=== PATIENT | female | born 1960 | race Caucasian/White ===

== ENCOUNTER → 2017-03-05 | Outpatient (CLI) | payer BC ==
[~2017-03-05] MED LIST: ATV/2; BUPRTAB51 PO; DICL-201 PO; ESCI1TAB10 PO; IBUP-103 PO; LEVO150T9 PO; LEVO50TA6 PO; LISI-729 PO; MULT-506 PO; OMEG10007 PO; [UNRECOGNIZED DRUG - OTHER] PO
--- NOTE | 2017-03-06 14:23 | MAMMOGRAPHY REPORT ---
BILATERAL DIGITAL SCREENING MAMMOGRAM TOMOSYNTHESIS WITH CAD: 03/05/2017 CLINICAL HISTORY: Routine screening. Patient has no complaints. TECHNIQUE: Breast tomosynthesis in addition to standard 2D mammography was performed. Current study was also evaluated with a Computer Aided Detection (CAD) system. COMPARISON: Comparison is made to exams dated: 05/25/2015 mammogram, 05/22/2014 mammogram, 04/15/2013 m ammogram, 04/12/2012 mammogram, 04/04/2011 mammogram, and 04/02/2010 mammogram - [facility]. BREAST COMPOSITION: The tissue of both breasts is extremely dense, which lowers the sensitivity of m ammography. FINDINGS: No suspicious masses, calcifications, or areas of architectural distortion are noted in ei ther breast. There has been no significant interval change compared to prior exams. IMPRESSION: ACR BI-RADS CATEGORY 1: NEGATIVE There is no mammographic evidence of malignancy. A 1 year screening mammogram is recommended. The pa tient will receive written notification of the results. Approximately 10% of breast cancers are not detected with mammography. A negative mammographic report should not delay biopsy if a clinically suggestive mass is present. Lilia Dos Santos M.D. /:03/05/2017 16:30:44 Group Contract Analyst: Stella Nicole RT(R)(M), [facility] letter sent: Normal 1/2 BI-RADS Code: ACR BI-RADS Category 1: Negative
== END | disposition home or self-care (01) ==
LOC: C.MAMM 09:46
PROVIDERS: ATTEND Family Medicine
DX: Z12.31 Encounter for screening mammogram for malignant neoplasm of breast (principal)

== ENCOUNTER 2017-09-18 05:32 | Inpatient (IN) | payer BC ==
[2017-08-13 13:02] VITALS: BMI 26.0
--- NOTE | 2017-08-13 13:32 | PAT Medication Instructions ---
Service Date Aug 13, 2017. Current Home Medication List Bupropion (Wellbutrin-Xl), 300 MG PO QAM Diclofenac (Voltaren), 75 MG PO PRN Escitalopram Oxalate (Lexapro), 20 MG PO QAM Fish Oil ([place]-3), 2 CAP PO QAM Ibuprofen Tab (Advil), 600 MG PO PRN Levothyroxine Sodium (Levothyroxine Sodium), 1 TAB PO QAM Lisinopril (Zestril), 5 MG PO QAM Multivitamin (Multivitamin), 1 TAB PO QAM [Elysium], 2 TAB PO QAM Medication Instructions For Your Scheduled Surgery - Check with surgeon for instructions: Diclofenac (Voltaren), 75 MG PO PRN Ibuprofen Tab (Advil), 600 MG PO PRN - Hold the following medications 2 weeks prior to surgery: Fish Oil ([place]-3), 2 CAP PO QAM [Elysium], 2 TAB PO QAM - Hold the following medications the morning of surgery: Multivitamin (Multivitamin), 1 TAB PO QAM Lisinopril (Zestril), 5 MG PO QAM - Take the following medications the morning of surgery with a sip of water: Levothyroxine Sodium (Levothyroxine Sodium), 1 TAB PO QAM Escitalopram Oxalate (Lexapro), 20 MG PO QAM Bupropion (Wellbutrin-Xl), 300 MG PO QAM If you have any questions please call us at [phone] or [phone] or [phone]
--- NOTE | 2017-08-13 14:25 | DIAGNOSTIC IMAGING REPORT ---
TWO VIEW CHEST CLINICAL HISTORY: Preoperative examination. FINDINGS: PA and lateral chest radiographs are obtained. No prior studies are available for comparison at the time of dictation. The cardiomediastinal silhouette is unremarkable. The lungs and pleural spaces are clear. There is no pneumothorax. The skeletal structures are osteopenic. There is S-shaped thoracolumbar scoliosis. Cholecystectomy clips are noted. IMPRESSION: No active disease in the chest. Electronically signed by: Rufino Kern M.D. 08/13/2017 2:24 PM Dictated Date/Time: 08/13/2017 2:23 PM
[2017-08-13 14:29] LABS: BASO % 0.4 %; BASO ABS # 0.02 K/uL (0-0.2); COMPLETE YES; EOS % 3.4 %; HEMATOCRIT 37.2 % (37-47); IG% 0.2 %; LYMPH % 36.7 %; LYMPH ABS # 1.83 K/uL (1.2-3.4); MEAN CELL VOLUME 90.1 fL (80-100); MEAN CORPUSCULAR HEMOGLOBIN 31.5 pg (25-34); MEAN CORPUSCULAR HGB CONC 34.9 g/dl (32-36); MEAN PLATELET VOLUME 9.7 fL (7.4-10.4); MONO % 8.4 %; NEUT % 50.9 %; PLATELET COUNT 217 K/uL (130-400); RED BLOOD COUNT 4.13 M/uL (4.2-5.4); WHITE BLOOD COUNT 4.99 K/uL (4.8-10.8)
[2017-08-13 14:43] LABS: PARTIAL THROMBOPLASTIN RATIO 1.1; PROTHROMBIN TIME (PATIENT) 10.3 SECONDS (9.0-12.0); URINE APPEARANCE CLEAR (CLEAR); URINE BILIRUBIN NEG (NEG); URINE COLOR YELLOW; URINE NITRITE NEG (NEG); URINE SPECIFIC GRAVITY 1.012 (1.000-1.030); UROBILINOGEN NEG (NEG)
[2017-08-13 14:53] LABS: MANUAL MICROSCOPIC REQUIRED? NO; REVIEW REQ? NO
[2017-08-13 15:07] LABS: BUN/CREATININE RATIO 21.7 (10-20); CALCIUM 9.2 mg/dl (8.5-10.1); CREATININE 0.83 mg/dl (0.60-1.20); POTASSIUM 3.8 mmol/L (3.5-5.1)
--- NOTE | 2017-09-16 17:32 | HISTORY & PHYSICAL EXAMINATION ---
DATE OF ADMISSION: 09/18/2017 NOTICE TO RECEIVING [facility]/AGENCY This information is strictly Confidential and protected under [place] law. [place] law prohibits you from making any further disclosure of this information unless further disclosure is expressly permitted by the written consent of the person to whom it pertains or is authorized by law. A general authorization for the release of medical or other information is not sufficient for this purpose. Hospital accepts no responsibility if the information is made available to any other person, INCLUDING THE PATIENT. CHIEF COMPLAINT: Primary osteoarthritis of the left hip. HISTORY OF PRESENT ILLNESS: Meenakshi is a very pleasant 57-year-old female who has been dealing with chronic bilateral hip pain with the left worse than the right. She underwent a hip arthroscopy by Dr. Powell a couple of years ago. During that procedure he did find a lot of arthritis in her hip. Unfortunately, her symptoms have worsened. It has gotten to the point where she is limping around all the time. She is having a hard time doing things that she enjoys. It hurts when she walks long distances. 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 After failing conservative treatment, she elected to proceed with a left total hip arthroplasty. PAST MEDICAL HISTORY: Depression and hypertension. PAST SURGICAL HISTORY: Significant for a left hip labral repair by Dr. Powell, tonsillectomy, appendectomy, cholecystectomy and tubal ligation. ALLERGIES: None. MEDICATIONS: Lisinopril 5 mg daily, Synthroid 150 mcg daily, Wellbutrin 300 mg daily, Lexapro 20 mg daily, Voltaren 75 mg as needed for pain, Mobic 15 mg as needed for pain, fish oil and multivitamins. FAMILY HISTORY: Significant for thyroid, liver and colon cancer. SOCIAL HISTORY: She is , has 1-2 drinks per day, has 2 kids and does little activity, mostly because of her hip pain. REVIEW OF SYSTEMS: She complains mostly of hip pain. All other pertinent review of systems are negative. PHYSICAL EXAMINATION: GENERAL: She is awake, alert and oriented x3. She is in no apparent distress. She is very pleasant. HEENT: Pupils are equal, round and reactive to light. Extraocular motion intact. Oral mucosa is pink and moist. HEART: Regular rate per radial pulse. LUNGS: [place] symmetrically bilaterally with no audible breath sounds. ABDOMEN: Soft, nontender, nondistended. MUSCULOSKELETAL: On physical examination of her left leg she walks with an antalgic gait. She has difficult lying down, mostly because of her hip pain. I am able to flex it to about 90 degrees and she has about 30 degrees of external rotation and 10 degrees of internal rotation with significant pain in end ranges of motion. All of her pain is located in her groin. Her leg lengths are equal. IMAGING DATA: X-rays of the left hip show advanced osteoarthritis with joint space narrowing and osteophyte formation. IMPRESSION: Primary osteoarthritis of the left hip. PLAN: Will proceed with an anterior left total hip arthroplasty. Postoperatively, she will be started on aspirin for DVT prophylaxis and kept in the hospital for 2 midnights for postoperative medical management.
[2017-09-18] VITALS (9 sets, daily range): BP systolic 102–128; BP diastolic 56–83; PULSE 66–82; TEMP 36.3–36.9; O2SAT 97–100; Ht 170.2 cm; Wt 76.1 kg
[~2017-09-18] VITALS: Ht 170.2 cm; Wt 76.1 kg
[~2017-09-18 05:32] MED LIST changes: -ATV/2; -LEVO50TA6 PO
[2017-09-18] MEDS ORDERED: LACTATED RINGER'S 1000ML 1,000 ML IV SCH (06:00)
[2017-09-18] MEDS ORDERED: LACTATED RINGER'S 1000ML IV SCH (06:00)
[2017-09-18] MEDS ORDERED: ACETAMINOPHEN 500 MG TAB PO SCH (06:00)
[2017-09-18] MEDS ORDERED: ROPIVACAINE 5MG/ML 30 ML 150 MG, BUPIVACAINE 0.5% MPF INJ 30 ML, EpINEphrine HCL INJ 0.... INFIL SCH ×8 (06:00)
[2017-09-18] MEDS ORDERED: CEFAZOLIN 2000MG IV PUSH 10 ML IV SCH (06:00)
[2017-09-18] MEDS ORDERED: GABAPENTIN 300 MG CAP PO SCH (06:00)
[2017-09-18] MEDS ORDERED: FAMOTIDINE 20 MG TAB PO SCH (06:00)
[2017-09-18] MEDS ORDERED: LACTATED RINGER'S 1000ML 500 ML IV ONE (06:00)
[2017-09-18] MEDS ORDERED: BUPIVACAINE 0.5 % 5 MG/1 ML PF 10ML VIAL ONE (06:27)
[2017-09-18] MEDS ORDERED: MIDAZOLAM HCL 1 MG/ML 2ML VIAL ONE ×3 (06:39→08:31)
[2017-09-18] MEDS ORDERED: ORTHO JOINT ANESTHETIC ONE (06:40)
[2017-09-18] MEDS ORDERED: BACITRACIN 50000 UNIT VIAL ONE (06:40)
[2017-09-18] MEDS: TRANEXAMIC ACID INJ 1,000 MG in SYRINGE 0 ML IV SCH ×2 (06:43→10:31)
--- NOTE | 2017-09-18 06:53 | History & Physical Bridge Note ---
H&P Re-Evaluation Bridge Note: I have examined the patient, reviewed the History & Physical and in the interval since the performance of the History & Physical I have noted the following changes of clinical significance: No changes noted
[2017-09-18] MEDS ORDERED: HYDROmorphone INJ 2 MG/ML SYR/VIAL IV PRN (07:15)
[2017-09-18] MEDS ORDERED: MEPERIDINE HCL 25 MG/ML CARP IV PRN (07:15)
[2017-09-18] MEDS ORDERED: EpHEDrine SULFATE INJ 50 MG/ML AMP IV PRN (07:15)
[2017-09-18] MEDS ORDERED: FENTANYL CITRATE INJ 50 MCG/1 ML 2 ML VIAL IV PRN (07:15)
[2017-09-18] MEDS ORDERED: ATROPINE SULFATE 0.1 MG/ML 5ML SYR IV PRN (07:15)
[2017-09-18] MEDS ORDERED: NALOXONE HCL 0.4 MG/1 ML VIAL/CARP IV PRN (07:15)
[2017-09-18] MEDS ORDERED: FLUMAZENIL 0.1 MG/1 ML 10 ML VIAL IV PRN (07:15)
[2017-09-18] MEDS ORDERED: ONDANSETRON INJ 2 MG/ML 2 ML VIAL IV PRN ×2 (07:15→09:15)
[2017-09-18] MEDS ORDERED: LABETALOL HCL IV 5 MG/ML 20ML IV PRN (07:15)
[2017-09-18] MEDS ORDERED: PHENYLEPHRINE 100MCG/ML 5ML SYR IV PRN (07:15)
[2017-09-18] MEDS ORDERED: LIDOCAINE HCL 2% 2 ML VIAL (20MG/ML) ONE (07:26)
[2017-09-18] MEDS ORDERED: PHENYLEPHRINE 100MCG/ML 5ML SYR ONE (07:26)
[2017-09-18] MEDS ORDERED: PROPOFOL IV EMULSION 10 MG/ML 20 ML VIAL IV ONE ×2 (07:26→08:34)
[2017-09-18] MEDS ORDERED: EpHEDrine SULFATE 50MG/5ML SYR ONE (07:41)
[2017-09-18] MEDS ORDERED: ALBUMIN HUMAN 5% 12.5 GM/250 ML VIAL IV ONE (08:20)
--- NOTE | 2017-09-18 09:00 | [facility] Post Operative Brief Note ---
Immediate Operative Summary Operative Date Sep 18, 2017. Pre-Operative Diagnosis Primary osteoarthritis of left hip Post-Operative Diagnosis same as pre-operative Procedure(s) Performed Left Total Hip Arthroplasty Anterior Surgeon Dr. Eddie Del Rio Transportation Logistics Internship Surgeon(s) Elijah Nugent Estimated Blood Loss 250ml Findings as above Specimens Permanent Specimen A: Left femoral head Complication(s) None Disposition Recovery Room / PACU
[2017-09-18] MEDS ORDERED: CEFAZOLIN IV 2,000 MG in DEXTROSE 5% 50ML 50 ML IV SCH (09:15)
[2017-09-18] MEDS ORDERED: MAGNESIUM HYDROXIDE SUSP 30 ML UDC PO PRN (09:15)
[2017-09-18] MEDS ORDERED: MoRPHine SULFATE 2 MG/ML CARP IV PRN (09:15)
[2017-09-18] MEDS ORDERED: SOD PHOSPHATE/SOD BIPHOSPHATE ENEMA 132 ML BTL PR PRN (09:15)
[2017-09-18] MEDS ORDERED: BISACODYL 10 MG SUPP PR PRN (09:15)
[2017-09-18] MEDS ORDERED: METOCLOPRAMIDE HCL INJ 5 MG/ML 2 ML VIAL IV PRN (09:15)
--- NOTE | 2017-09-18 09:28 | OPERATIVE REPORT ---
DATE OF OPERATION: 09/18/2017 PREOPERATIVE DIAGNOSIS: Primary osteoarthritis of the left hip. POSTOPERATIVE DIAGNOSIS: Same. PROCEDURE: Left total hip arthroplasty. SURGEON: Dr. Eddie Del Rio. MECHANICAL TECHNOLOGIST: Maximilian Nugent PA-C, whose assistance was necessary for positioning of the leg dang and retractors and closure. ANESTHESIA: Spinal. COMPLICATIONS: None. CONDITION: Stable to PACU. IMPLANTS USED: I used a [employer] Taperloc total hip arthroplasty system with a size 48 G7 cup with a single 30 mm screw, a size 6 standard offset Taperloc stem and a size 32 ceramic head with a minus 3 neck and then E1 neutral liner. INDICATIONS: Meenakshi is a pleasant 57-year-old female who has been dealing with a several year history of left hip and groin pain. X-rays and clinical examination were diagnostic for primary osteoarthritis of the left hip. After failing conservative treatment, she elected to undergo a left total hip arthroplasty. OPERATION AND FINDINGS: On 09/18/2017, she arrived at [facility] for the above procedure. She was seen in the preoperative holding area and the operative extremity was identified and signed. She was given a preoperative antibiotic and a spinal anesthetic. She was taken back to the operating room, laid on the table in supine position and put under basic sedation. The left leg was then brought out to a purist leg positioner. Left hip was then prepped and draped in sterile fashion, time-out was done and the patient and operative extremity was properly identified. An anterior approach was used. Dissection was taken down through the tensor fascia and the tensor muscle belly was retracted laterally and the rectus was retracted medially. The circumflex vessels were ligated. The capsule was then incised and tagged for later repair. The femoral neck was then resected and the femoral head was removed. The acetabulum was exposed. Time was spent doing a complete circumferential labral release. Sequential reaming of the acetabulum up to a size 47 reamer was done. Reaming was done under fluoroscopy to ensure appropriate version. Once I had good circumferential bleeding bone, a 48 mm cup was then impacted into place. A single 30 mm screw was placed. An E1 neutral poly liner was then snapped into place. The proximal femur was then exposed. Sequential broaching up to a size 6 broach was done. A standard head and neck assembly was applied and the hip was reduced. I was happy with the size of the implants, the leg was just a little bit long. The hip was then dislocated, the final size 6 stem was then impacted into place and a 32 minus 3 femoral head was then impacted into place. The hip was reduced and final fluoroscopic images showed anatomic alignment and anatomic length. The wound was irrigated with 3 liters of normal saline solution with bacitracin. Surrounding soft tissues were injected with 100 mL of an orthopedic pain control cocktail. The capsule was closed with #1 Vicryl sutures. A drain was placed. The fascia was closed with #1 PDS suture. Skin was closed with 2-0 Vicryl, 3-0 V-Loc suture, brannon and a Prevena VAC dressing. She was then taken to the postanesthesia care unit in stable condition. She tolerated the procedure well. I attest to the content of the Intraoperative Record and any orders documented therein. Any exception s are noted below.
--- NOTE | 2017-09-18 09:43 | Anesthesiology Progress Note ---
Anesthesia Post Op Note Date & Time Sep 18, 2017 at 09:43 Vital Signs Pain Intensity: 0 Vital Signs Past 12 Hours Date Time Temp Pulse Resp B/P (MAP) Pulse Ox O2 Delivery O2 Flow Rate FiO2 09/18/17 09:40 36.8 09/18/17 09:37 97 18 94 09/18/17 09:37 65 18 09/18/17 09:36 123/78 09/18/17 09:32 71 14 100 09/18/17 09:32 71 14 09/18/17 09:31 122/79 09/18/17 09:27 69 14 97 09/18/17 09:27 68 14 09/18/17 09:26 120/80 09/18/17 09:22 70 16 09/18/17 09:22 69 16 97 09/18/17 09:21 125/80 09/18/17 09:20 123/81 09/18/17 09:15 113/74 09/18/17 09:12 36.9 71 16 113/74 99 Room Air 09/18/17 05:56 36.8 66 18 128/83 97 Room Air Notes Mental Status: alert / awake / arousable, participated in evaluation Pt Amnestic to Procedure: Yes Nausea / Vomiting: adequately controlled Pain: adequately controlled Airway Patency, RR, SpO2: stable & adequate BP & HR: stable & adequate Hydration State: stable & adequate Neuraxial Anesthesia: was administered, sensory block is resolving Anesthetic Complications: no major complications apparent
--- NOTE | 2017-09-18 10:01 | DIAGNOSTIC IMAGING REPORT ---
L HIP UNILATERAL 1 VIEW CLINICAL HISTORY: Left anterior total hip. COMPARISON STUDY: Pelvis and hip radiographs July 28, 2017. Fluoroscopy time: 44 seconds. FINDINGS: 2 fluoroscopic images demonstrate expected findings during total left hip arthroplasty. Hardware is intact. There is no fracture or unexpected radiopaque foreign body. IMPRESSION: Expected findings following total left hip arthroplasty. Electronically signed by: Irineo Gomez M.D. 09/18/2017 9:59 AM Dictated Date/Time: 09/18/2017 9:58 AM
--- NOTE | 2017-09-18 10:02 | DIAGNOSTIC IMAGING REPORT ---
L PELVIS/UNILATERAL HIP 1 VIEW CLINICAL HISTORY: Left hip degenerative joint disease. Total left hip arthroplasty. COMPARISON: Pelvis and bilateral hip radiographs July 28, 2017. FINDINGS: Alignment of the total left hip arthroplasty is anatomic. There is no periprosthetic fracture or unexpected radiopaque foreign body. Drains and skin brannon are present. There is moderate to severe superior right hip joint space narrowing. IMPRESSION: Expected findings following total left hip arthroplasty. Electronically signed by: Irineo Gomez M.D. 09/18/2017 10:00 AM Dictated Date/Time: 09/18/2017 10:00 AM
[2017-09-18] MEDS: KETOROLAC TROMETHAMINE 30 MG/ML VIAL IV. SCH ×3 (12:44→23:31)
[2017-09-18] MEDS: CEFAZOLIN IV 2,000 MG in SYRINGE 0 ML IV SCH ×2 (14:21→22:24)
[2017-09-18] MEDS: ACETAMINOPHEN IV 1,000 MG in EMPTY BAG 0 ML IV SCH ×2 (14:32→22:24)
[2017-09-18] MEDS: OXYCODONE HCL IR 5 MG TAB (IMMEDIATE RELEASE) PO PRN ×3 (15:20→21:13)
[2017-09-18] MEDS ORDERED: NURSING VERBAL MED ORDER ONE ×2 (17:15→19:00)
[2017-09-18] MEDS: DOCUSATE SODIUM 100 MG CAP PO SCH (21:12)
[2017-09-18] MEDS: ASPIRIN 325 MG ECTAB PO SCH (21:12)
[2017-09-18] MEDS: SENNA 8.6 MG TAB PO SCH (21:12)
[2017-09-18] MEDS: SODIUM CHLORIDE 0.9% 1000ML 1,000 ML IV SCH (21:13)
[2017-09-19 03:18] VITALS: BP 121/73; PULSE 73; TEMP 36.7; O2SAT 98
[2017-09-19] MEDS: KETOROLAC TROMETHAMINE 30 MG/ML VIAL IV. SCH ×4 (05:28→23:19)
[2017-09-19] MEDS: LEVOTHYROXINE 150 MCG TAB PO SCH (05:28)
[2017-09-19] MEDS: ACETAMINOPHEN IV 1,000 MG in EMPTY BAG 0 ML IV SCH (05:29)
[2017-09-19 06:35] LABS: HEMATOCRIT 27.7 % (37-47); MEAN CELL VOLUME 89.9 fL (80-100); MEAN CORPUSCULAR HEMOGLOBIN 30.8 pg (25-34); MEAN CORPUSCULAR HGB CONC 34.3 g/dl (32-36); MEAN PLATELET VOLUME 9.1 fL (7.4-10.4); PLATELET COUNT 162 K/uL (130-400); RED BLOOD COUNT 3.08 M/uL (4.2-5.4); WHITE BLOOD COUNT 7.63 K/uL (4.8-10.8)
[2017-09-19 06:59] VITALS: BP 105/63; PULSE 72; TEMP 36.8; O2SAT 98
[2017-09-19 07:13] LABS: BUN/CREATININE RATIO 18.5 (10-20); CALCIUM 7.9 mg/dl (8.5-10.1); CREATININE 0.68 mg/dl (0.60-1.20); POTASSIUM 3.6 mmol/L (3.5-5.1)
[2017-09-19 07:26] LABS: BASO % 0.3 %; BASO ABS # 0.02 K/uL (0-0.2); COMPLETE YES; IG% 0.3 %; LYMPH % 19.7 %; MONO % 8.1 %; NEUT % 70.6 %
[2017-09-19] MEDS: SODIUM CHLORIDE 0.9% 1000ML 1,000 ML IV SCH (07:52)
--- NOTE | 2017-09-19 08:01 | Discharge Instructions ---
Discharge Instructions Date of Service Sep 19, 2017. Admission Reason for Admission: Left Hip Degenerative Joint Disease Discharge Discharge Diagnosis / Problem: Left Total Hip Discharge Goals Goal(s): Decrease discomfort, Improve function Activity Recommendations Activity Limitations: as noted below . Instructions / Follow-Up Instructions / Follow-Up Activity and Therapy Recommendations: * If you are using [facility] then Physical Therapy will be provided until they feel you are ready to start Outpatient Physical Therapy. If you are not using a Home Health agency then Outpatient Physical Therapy should start about 3-5 days from your day of surgery. Therapy will last about 3-6 weeks * You were shown a series of exercises in the hospital. Do these exercises three times each day including the exercises you were shown in physical therapy. * Get up and walk several times each day.~ For the first four weeks, try not to stand or walk for more than one hour at a time. If you do stand or walk for more than one hour, you will not hurt anything, but your leg will likely swell.~ ~ * As you feel comfortable, you may change from the walker or crutches to a cane and~then to independent walking. Medications: * Narcotic You will likely be sent home from the hospital with a prescription for the narcotic pain medication that worked best throughout your stay. * Aspirin Most patients will be required to take Aspirin 325mg twice a day for 6 weeks after surgery. This is obtained [id number] and a prescription is not necessary. * Other medications may be prescribed for specific circumstances. If you have any questions, please call the office at . * Resume previous home medications unless otherwise instructed TEDs/Elastic Stockings: The white elastic stockings help limit swelling and prevent blood clots from forming in your legs. The more you wear them, the more they work. Wear them for six weeks. Dressing Care: Leave the Prevena VAC dressing on for 7-10 days. You may remove it if it hasn' t stopped working by the 10th day Showering: You may shower after the VAC dressing is off. Let soapy water run over the brannon. Do not scrub or soak the incision. Things To Watch For: * Drainage from the incision site that occurs more than one week after your surgery. * Increased redness at the incision site. * Fever above 102 degrees Fahrenheit. * Unusual chest pain or shortness of breath. * Call [facility] at with any of the above problems Follow-Up Visit: Follow-up with Dr. Del Rio 2 weeks after your day of surgery. An appointment was probably scheduled when you signed-up for surgery in the office. If you have any questions call Office Instructions: More detailed instructions as well as Frequently Asked Questions were provided in a folder by our office when you signed-up for surgery. Please review these instructions when you get home. If you have any further questions or concerns, please feel free to call the office at [phone] Current Hospital Diet Patient's current hospital diet: Regular Diet Discharge Diet Recommended Diet: Regular Diet Procedures Procedures Performed: Left Total Hip Arthroplasty Anterior Pending Studies Studies pending at discharge: no Medical Emergencies . Who to Call and When: Medical Emergencies: If at any time you feel your situation is an emergency, please call [phone] immediately. . Non-Emergent Contact Non-Emergency issues call your: Surgeon Call Non-Emergent contact if: wound has increased drainage, wound has increased redness . "Provider Documentation" section prepared by Eddie Del Rio. . VTE Core Measure Inpt VTE Proph given/why not?: Other Anticoagulation (Aspirin 325 twice a day for 6 weeks)
--- NOTE | 2017-09-19 08:32 | PROGRESS NOTE ---
DATE: 09/19/2017 DATE: 09/19/2017 CHIEF COMPLAINT: Status post left total hip arthroplasty postop day #1. PROGRESS: Meenakshi was seen and examined at bedside today. Overall, she is doing very well. She has been up and using the bathroom and she has no problem walking on it. She is sitting up at bedside when I came in the room. She has no complaints. PHYSICAL EXAMINATION: LEFT HIP: The Prevena VAC dressing is to suction. She has active dorsiflexion and plantarflexion of her left ankle and active extension of her left knee. Sensation is intact on her quad. She has slightly decreased sensation on the lateral aspect of her femur. LABORATORY DATA: She has an H&H today of 9.5 and 27.7. Her glucose is 102. Her vital signs are stable on room air. She is voiding on her own. IMPRESSION: Status post left total hip arthroplasty postop day #1. PLAN: At this point, she is doing as well as expected. She will be seen by physical therapy today and continue ambulation. I will see her tomorrow morning and if everything looks good, we will discharge her to home with [facility] health.
[2017-09-19] MEDS: ESCITALOPRAM OXALATE 20 MG TAB PO SCH (08:34)
[2017-09-19] MEDS: OXYCODONE HCL IR 5 MG TAB (IMMEDIATE RELEASE) PO PRN ×3 (08:34→20:48)
[2017-09-19] MEDS: MULTIVITAMIN TAB PO SCH (08:34)
[2017-09-19] MEDS: ASPIRIN 325 MG ECTAB PO SCH ×2 (08:35→20:48)
[2017-09-19] MEDS: LISINOPRIL 5 MG TAB PO SCH (08:35)
[2017-09-19] MEDS: BuPROPion XL 300 MG TABCR PO SCH (08:35)
[2017-09-19] MEDS: DOCUSATE SODIUM 100 MG CAP PO SCH ×2 (08:35→20:48)
[2017-09-19] MEDS ORDERED: NURSING VERBAL MED ORDER ONE (09:30)
[2017-09-19 11:14] VITALS: BP 107/65; PULSE 65; TEMP 36.6; O2SAT 99
[2017-09-19] MEDS: ACETAMINOPHEN 500 MG TAB PO SCH ×2 (13:34→21:43)
[2017-09-19 15:39] VITALS: BP 107/65; PULSE 69; TEMP 36.8; O2SAT 99
[2017-09-19] MEDS: SENNA 8.6 MG TAB PO SCH (20:48)
[2017-09-19 23:27] VITALS: BP 132/78; PULSE 70; TEMP 36.9; O2SAT 97
[2017-09-20] MEDS: LEVOTHYROXINE 150 MCG TAB PO SCH (05:33)
[2017-09-20] MEDS: ACETAMINOPHEN 500 MG TAB PO SCH (05:34)
[2017-09-20] MEDS: KETOROLAC TROMETHAMINE 30 MG/ML VIAL IV. SCH (05:34)
[2017-09-20 06:04] VITALS: BP 119/75; PULSE 66; TEMP 36.8; O2SAT 97
[2017-09-20] MEDS: DOCUSATE SODIUM 100 MG CAP PO SCH (07:40)
[2017-09-20] MEDS: ESCITALOPRAM OXALATE 20 MG TAB PO SCH (07:40)
[2017-09-20] MEDS: ASPIRIN 325 MG ECTAB PO SCH (07:40)
[2017-09-20] MEDS: LISINOPRIL 5 MG TAB PO SCH (07:41)
[2017-09-20] MEDS: MULTIVITAMIN TAB PO SCH (07:41)
[2017-09-20] MEDS: BuPROPion XL 300 MG TABCR PO SCH (07:41)
[2017-09-20] MEDS: OXYCODONE HCL IR 5 MG TAB (IMMEDIATE RELEASE) PO PRN (08:59)
[2017-09-20] MEDS ORDERED: RXC5 PO (09:05)
[2017-09-20] MEDS ORDERED: ASPEC325 PO (09:05)
[2017-09-20 09:17] VITALS: BP 119/75; PULSE 66; TEMP 36.8; O2SAT 97
--- NOTE | 2017-09-20 09:22 | PROGRESS NOTE ---
DATE: 09/20/2017 CHIEF COMPLAINT: Status post left total hip arthroplasty, postop day #2. PROGRESS: Monse was seen and examined at bedside today. Overall, she is doing fairly well. She has been ambulating well with physical therapy. She has some soreness in her hip, but otherwise no complaints. PHYSICAL EXAMINATION: LEFT HIP: The Prevena VAC dressing is to suction and intact. The leg lengths are equal. She has active dorsiflexion and plantarflexion of her left ankle. IMPRESSION: Status post left total hip arthroplasty, postop day #2. PLAN: The drain has been pulled. She is ambulating well with physical therapy. Her pain is well controlled with the oral oxycodone. We will discharge her to home later today.
--- NOTE | 2017-09-20 09:37 | DISCHARGE SUMMARY ---
DISCHARGE DIAGNOSIS: Primary osteoarthritis of the left hip. PROCEDURE: Left total hip arthroplasty on 09/18/[address] Eddie Del Rio. DISCHARGE INSTRUCTIONS: 1. Aspirin 325 mg twice a day for 6 weeks. 2. Oxycodone 5-10 mg every 4 hours as needed for pain. 3. Wellbutrin 300 mg daily. 4. Voltaren 75 mg as needed. 5. Lexapro 20 mg daily. 6. Synthroid 150 mcg daily. 7. Zestril 5 mg daily. 8. Continue [id number]-phdygzo vitamins and supplements. HOSPITAL COURSE: Monse is a pleasant 57-year-old female who presented to my office with complaints of left hip pain. X-rays and clinical examination were diagnostic for primary osteoarthritis of the left hip. After failing conservative treatment, she elected to undergo a left total hip arthroplasty. On 09/18/2017, she arrived at [facility] and underwent an anterior left total hip arthroplasty without complications. She had a spinal anesthetic. Postoperatively, she was started on aspirin for DVT prophylaxis and discharged to general orthopedic floor. Her hospital course was uneventful. On postop day #1, her H&H was stable at 9.5 and 27.7. She was up and ambulating well with physical therapy. She was having some soreness in her hip, but it was not too bad. On post day #2, the drain was pulled. She continued to work well with physical therapy and her pain was well controlled with oral oxycodone. She was subsequently discharged to home with the above instructions.
== END 2017-09-20 10:30 | disposition home health service (06) | DRG 470 ==
LOC: C.ACU 05:32 → C.3E 09:06 → ENRESERV 09:24
PROVIDERS: ADMIT Orthopaedic Surgery; ATTEND Orthopaedic Surgery
PROC: 0SRB04Z Replacement of Left Hip Joint with Ceramic on Polyethylene Synthetic Substitute, Open Approach (ICD-10-PCS; principal; 2017-09-18 07:00)
DX: M16.12 Unilateral primary osteoarthritis, left hip (principal); I10 Essential (primary) hypertension; F32.9 Major depressive disorder, single episode, unspecified; Z79.899 Other long term (current) drug therapy; Z80.0 Family history of malignant neoplasm of digestive organs; Z80.8 Family history of malignant neoplasm of other organs or systems

== ENCOUNTER → 2018-04-27 | Outpatient (CLI) | payer OTHER ==
[~2018-04-27] MED LIST changes: +ASPEC325 PO; +RXC5 PO
--- NOTE | 2018-04-29 07:54 | MAMMOGRAPHY REPORT ---
BILATERAL DIGITAL SCREENING MAMMOGRAM TOMOSYNTHESIS WITH CAD: 04/27/2018 CLINICAL HISTORY: Routine screening. Patient has no complaints. TECHNIQUE: The study was acquired using full field digital technology and interpreted from soft copy. Breast tomosynthesis in addition to standard 2D mammography was performed. Current study was also ev aluated with a Computer Aided Detection (CAD) system. COMPARISON: Comparison is made to exams dated: 03/05/2017 mammogram, 05/25/2015 mammogram, 05/22/2014 ma mmogram, 04/15/2013 mammogram, 04/12/2012 mammogram, and 04/04/2011 mammogram - [facility]. BREAST COMPOSITION: The tissue of both breasts is heterogeneously dense, which may obscure small mass es. FINDINGS: There is a possible grouping of faint punctate microcalcifications in the lateral, posterio r right breast, only seen on the CC view, for which additional spot magnification views are recommend ed. No other suspicious mass, architectural distortion or cluster of microcalcifications is seen. IMPRESSION: ACR BI-RADS CATEGORY 0: INCOMPLETE EVALUATION: NEED ADDITIONAL IMAGING EVALUATION The possible grouping of faint punctate microcalcifications in the lateral, posterior right breast ne ed additional evaluation. The patient will be called to schedule an appointment. Some breast cancers are not detected with mammography. A negative mammographic report should not perez y biopsy if a clinically suggestive mass is present. Evie Simon M.D. ay/:04/27/2018 22:06:27 Pad Assembler: Wilda Palacios, RT(R)(M)(BD), [facility] letter sent: Addl Imaging 0 BI-RADS Code: ACR BI-RADS Category 0: Incomplete Evaluation: Need Additional Imaging Evaluation
== END | disposition home or self-care (01) ==
LOC: C.MAMM 13:11
PROVIDERS: ATTEND Family Medicine
DX: Z12.31 Encounter for screening mammogram for malignant neoplasm of breast (principal); R92.8 Other abnormal and inconclusive findings on diagnostic imaging of breast

== ENCOUNTER → 2018-05-05 | Outpatient (CLI) | payer OTHER ==
--- NOTE | 2018-05-05 14:57 | MAMMOGRAPHY REPORT ---
UNILATERAL RIGHT DIGITAL DIAGNOSTIC MAMMOGRAM: 05/05/2018 CLINICAL HISTORY: 58-year-old woman called back from screening mammography for possible microcalcific ations in the right upper outer quadrant. No known family history of breast cancer. TECHNIQUE: Spot magnification right CC and ML views were obtained. COMPARISON: Comparison is made to exams dated: 04/27/2018 mammogram, 03/05/2017 mammogram, 05/25/2015 ma mmogram, 04/12/2012 mammogram, 05/22/2014 mammogram, and 04/02/2010 mammogram - [facility]. BREAST COMPOSITION: The tissue of right breast is heterogeneously dense, which may obscure small mass es. FINDINGS: Spot magnification views of the right upper outer quadrant demonstrate 2 faint clusters of amorphous microcalcifications in the upper outer posterior breast, measuring 6 and 7 mm. When compar ing back to prior available mammograms, the calcifications were not definitely seen on the 2016 and rio mammograms and therefore the calcifications are indeterminate. Definitive characterization with right breast stereotactic guided biopsy 2 is recommended. No obvious associated mass or architectu ral distortion seen near the calcifications. IMPRESSION: ACR BI-RADS CATEGORY 4: SUSPICIOUS 1. Right breast stereotactic guided biopsy 2 is recommended in the right upper outer quadrant for 2 newly visualized faint amorphous clusters of calcifications. These results and recommendations were discussed with the patient at the time of the exam. She tenta tively schedule the biopsy prior to leaving her department. Some breast cancers are not detected with mammography. A negative mammographic report should not perez y biopsy if a clinically suggestive mass is present. Evie Simon M.D. ay/:05/05/2018 09:04:05 Adjustment Clerk: RT Christiana(Dipak)(M), [facility] letter sent: Abnormal 4/5 BI-RADS Code: ACR BI-RADS Category 4: Suspicious
== END | disposition home or self-care (01) ==
LOC: C.MAMM 08:25
PROVIDERS: ATTEND Family Medicine
DX: R92.1 Mammographic calcification found on diagnostic imaging of breast (principal); R92.0 Mammographic microcalcification found on diagnostic imaging of breast

== ENCOUNTER → 2018-05-17 | Outpatient (CLI) | payer OTHER ==
--- NOTE | 2018-05-17 14:32 | Discharge Instructions ---
Discharge Instructions Procedure Procedure Date: May 17, 2018. Reason for visit: Right Calcs X 2. Discharge Discharge Date: May 17, 2018. Discharge Diagnosis: post right breast stereotactic keli guided biopsy x 2 Instructions Activity Recommendations: Additional Limitations (see below) Return to School/Work: no limitations Recommended Home Diet: No Limitations Provider Instructions: ACTIVITY RECOMMENDATIONS: * No lifting, pushing, pulling or exercising the affected side for three days. RETURN TO SCHOOL/WORK: * You may return to work/school after the procedure, but do not perform any strenuous activities for 24 to 48 hours. MEDICATIONS: * Tylenol (two 325 mg) every four to six hours if needed for mild pain (if not allergic to Tylenol). DIET: * Resume previous diet. SPECIAL CARE INSTRUCTIONS: * Keep biopsy site dry for 24 hours. May shower after 24 hours, but do not soak (bathe) incision. May remove Tegaderm (plastic patch) 24 hours after procedure * Leave the steri-strips on for one week. Allow the steri-strips to fall off by themselves. If not off after one week, you may remove them. You may place a Bandaid crosswise over the strips, if desired. * Apply ice 10 minutes on and 10 minutes off as needed. * Wear a bra at bedtime to sleep more comfortably for 2-3 days. * Your referring physician should have the results after approximately 5 to 7 business days. * Call for unusual bleeding, fever, drainage, etc or if you have any questions call [phone] during normal business hours or after hours call Dr Simon, . FOLLOW UP VISIT: Follow-up with Referring Physician as scheduled. Allergies Coded Allergies: Latex (Verified Allergy, Unknown, RASH, 09/18/17) P[employer] Tay Recommendations: Call your doctor if: * Temperature above 101 degrees * Pain not relieved by pain medicine ordered * There is increased drainage or redness from any incision * You have any unanswered questions or concerns. Your Doctors Instructions noted above were prepared by provider Evie Simon. Patient Signature Section: Patient Instructions Signature Page Monse Cardona Patient (or Guardian) Signature/Date: I have read and understand the instructions given to me by my caregivers. Caregiver/RN/Doctor Signature/Date: The above-named patient and/or guardian has received patient instructions on this date. + Original Patient Signature Page (only) stays with chart. Please make copy for patient.
--- NOTE | 2018-05-18 14:58 | MAMMOGRAPHY REPORT ---
UNILATERAL RIGHT DIGITAL DIAGNOSTIC MAMMOGRAM: 05/17/2018 CLINICAL HISTORY: 2 faint clusters of punctate/amorphous microcalcifications in the right upper outer posterior breast. Patient presents for stereotactic guided biopsy. IMPRESSION: POST PROCEDURE IMAGING FOR MARKER PLACEMENT Please refer to the report from right breast stereotactic guided biopsy performed at the same time fo r full detail. Some breast cancers are not detected with mammography. A negative mammographic report should not perez y biopsy if a clinically suggestive mass is present. Evie Simon M.D. ay/:05/17/2018 14:57:54 Brush Polisher: RT Luis Alberto(R)(M), [facility] BI-RADS Code: Post Procedure Imaging For Marker Placement
--- NOTE | 2018-05-18 14:58 | MAMMOGRAPHY REPORT ---
MULTIPLE STEREOTACTIC GUIDED BIOPSIES RIGHT BREAST: 05/17/2018 CLINICAL HISTORY: 2 faint amorphous clusters of microcalcifications in the right upper outer posterio r breast. Patient presents for stereotactic biopsy 2. COMPARISON: Diagnostic spot magnification views dated 05/05/2018, prior screening mammograms dated 04/27, 03/05/2017, 05/25/2015, 05/22/2014, 04/15/2013 PATIENT CONSENT: After explaining the risks, benefits and alternatives of the procedure to the patien t, informed consent was obtained both verbally and in writing. Specific risks include: Bleeding, inf ection, puncture of adjacent structure, pain, nontarget biopsy, sampling error, metal allergy and med ication reaction. PROCEDURE DESCRIPTION: A time-out was performed and the right breast was confirmed as the site of bio psy. The patient was placed prone on the stereotactic biopsy table and the breast was placed in CC fr om above compression. A tomosynthesis aviation neuropsychologist view was obtained which demonstrates the 2 clusters of am orphous microcalcifications. First the more lateral cluster was targeted utilizing the coordinates obtained by the computer. The skin was prepped with Betadine. Chlopoprocaine was administered as loc al anesthesia. A small skin incision was made. Through the incision, the needle was inserted to the depth determined by the computer. 9 samples were obtained using a [employer] Eviva 9-gauge vacuum-assisted biopsy device. The specimen radiograph demonstrated several financial services sales representative microcalcifications, ther efore, a dumbbell-shaped metallic marker was placed at the biopsy site. There was persistent oozing from this biopsy site for 30 minutes after the first site of biopsy. Therefore manual compression wa s held until this bruising subsided. Then the right breast was placed in compression again and a CC from above tomosynthesis copy was obta ined. However, the second cluster of amorphous microcalcifications was localizing inferiorly and pos itioning was changed to CC from below. This second cluster of calcifications was targeted utilizing the coordinates obtained by the computer. The skin of the inferior right breast was cleansed with Be tadine. Additional Chloroprocaine was administered as local anesthesia. A small skin incision was m jarad. Through the incision, 6 samples were obtained utilizing a [employer] Eviva 9-gauge vacuum assist bio psy device. The specimen radiograph demonstrated a few financial services sales representative punctate calcifications theref ore a T-shaped biopsy marker clip was placed at the site of biopsy. There was no immediate complicat ion. Hemostasis was achieved after several minutes of manual compression. The samples were sent to pathology in appropriately labeled containers denoted, "A" - more lateral cl uster and "B" - more medial cluster. Postprocedure CC and ML views of the right breast were obtained. 2 new metallic biopsy marker clips are seen in the upper outer posterior right breast. No significant postbiopsy hematoma identified. IMPRESSION: STEREOTACTIC GUIDED BIOPSY Status post right breast stereotactic tomosynthesis guided biopsy 2 for clusters of amorphous microc alcifications in the upper outer posterior breast. The patient will receive notification of the biopsy results from her referring physician. Chloroprocaine was administered as local anesthesia, which the patient tolerated well and had no adve rse reactions or allergic reaction. Evie Simon M.D. ay/:05/17/2018 15:05:28 Adaptive Physical Education Teacher: RT Luis Alberto(Dipak)(M), [facility]
--- NOTE | 2018-05-18 14:58 | MAMMOGRAPHY REPORT ---
STEREOTACTIC GUIDED BIOPSY: 05/17/2018 CLINICAL HISTORY: 2 indeterminate clusters of faint punctate/amorphous microcalcifications in the rig ht upper outer quadrant posteriorly. Patient presents for stereotactic guided biopsy 2. IMPRESSION: STEREOTACTIC GUIDED BIOPSY Please refer the report from right breast stereotactic guided biopsy performed at the same time for f ull detail. Evie Simon M.D. ay/:05/17/2018 14:58:36 Mechanical Project Manager: Stella Sanz RT(R)(M), [facility]
== END | disposition home or self-care (01) ==
LOC: C.MAMM 12:32
PROVIDERS: ATTEND Family Medicine
DX: R92.0 Mammographic microcalcification found on diagnostic imaging of breast (principal)